=== PATIENT | female | born 1960 | race Hispanic/Latino ===

== ENCOUNTER 2020-03-06 05:19 | Observation (INO) | payer BC ==
[2020-03-05 12:20] VITALS: BP 128/85
[2020-03-05 12:45] LABS: BASOPHILS % (AUTO) 0.5 % (0.0-5.0); EOSINOPHILS % (AUTO) 1.3 % (0.0-8.0); HEMATOCRIT 47.7 % (36-48); LYMPHOCYTES % (AUTO) 28.3 % (21.0-51.0); MEAN CORPUSCULAR HEMOGLOBIN 29.9 pg (27.0-33.0); MEAN CORPUSCULAR HGB CONC 32.9 g/dL (32.0-36.0); MEAN CORPUSCULAR VOLUME 90.9 fL (79-99); MONOCYTES % (AUTO) 6.2 % (3.0-13.0); NEUTROPHILS % (AUTO) 63.4 % (40.0-77.0); PLATELET COUNT (AUTO) 226 K/uL (130-400); RED BLOOD CELL COUNT(AUTO) 5.25 MIL/uL (4.00-5.50); WHITE BLOOD COUNT (AUTO) 7.7 K/uL (4.8-10.8)
[~2020-03-06] VITALS: Ht 157.5 cm; Wt 70.6 kg
[2020-03-06] VITALS (25 sets, daily range): BP systolic 106–136; BP diastolic 43–86
[~2020-03-06 05:19] MED LIST: CALCIUM PO; KRIL1CAP29 PO; L.AC1CAP6 PO; MAG PO; SIMV10TA97 PO; ZINC PO; thyroid PO
[2020-03-06] MEDS ORDERED: LACTATED RINGERS 1000ML 1,000 ML IV SCH (08:00)
[2020-03-06] MEDS: CEFAZOLIN SODIUM 1 GM VIAL IVP ONE ×2 (08:13→10:40)
[2020-03-06] MEDS ORDERED: DEXAMETHASONE SOD PHOSPHATE 10MG/ML 1ML VIAL ONE (10:25)
[2020-03-06] MEDS ORDERED: MIDAZOLAM HCL 1 MG/ML 2ML VIAL ONE (10:25)
[2020-03-06] MEDS ORDERED: GLYCOPYRROLATE 1 MG/5 ML SYRINGE ONE (10:25)
[2020-03-06] MEDS ORDERED: LIDOCAINE PF 2% 5ML ABBOJECT ONE (10:25)
[2020-03-06] MEDS ORDERED: NEOSTIGMINE 5MG/5ML SYR IV ONE (10:26)
[2020-03-06] MEDS ORDERED: FENTANYL CITRATE PF 50 MCG/1 ML 2ML VIAL ONE ×2 (10:26→11:02)
[2020-03-06] MEDS ORDERED: PROPOFOL 10 MG/ML 20ML VIAL IV ONE (10:26)
[2020-03-06] MEDS ORDERED: ROCURONIUM 10MG/1ML SYR 10 MG/ML ML ONE (10:26)
[2020-03-06] MEDS ORDERED: ONDANSETRON HCL 4 MG/2 ML VIAL ONE ×2 (10:26→10:45)
[2020-03-06] MEDS ORDERED: ACETAMINOPHEN-CODEINE 300/30MG TAB ONE (12:48)
[2020-03-06] MEDS ORDERED: PROMETHAZINE HCL 25 MG/ML 1ML AMPULE IM PRN ×2 (15:00)
[2020-03-06] MEDS ORDERED: BISACODYL 10 MG SUPP.RECT RC PRN (15:00)
[2020-03-06] MEDS ORDERED: ONDANSETRON HCL 4 MG/2 ML VIAL IVP PRN (15:00)
[2020-03-06] MEDS ORDERED: ACETAMINOPHEN-CODEINE 300/30MG TAB PO PRN (15:00)
[2020-03-06] MEDS ORDERED: MEPERIDINE-PF 100 MG/ML SYG IM PRN (15:00)
[2020-03-06] MEDS: SIMETHICONE 80 MG TAB.CHEW PO PRN (19:51)
[2020-03-06] MEDS: IBUPROFEN 600 MG TABLET PO PRN (19:52)
[2020-03-06] MEDS: DOCUSATE SODIUM 100 MG CAP PO PRN (19:52)
[2020-03-06] MEDS: DEXTROSE 5 %-0.45 % NACL 1,000 ML IV PRN (21:57)
[2020-03-07 03:45] VITALS: BP 110/58
[2020-03-07] MEDS: IBUPROFEN 600 MG TABLET PO PRN ×2 (04:03→10:22)
--- NOTE | 2020-03-07 04:10 | NUR ---
S[facility], LEOLA CARE INSTRUCTED ON USE OF LEOLA BOTTLE AND SITZ BATH Addendum: 03/07/20 at 0439 by RENE CERON LVN Amended: Links added.
[2020-03-07] MEDS: DEXTROSE 5 %-0.45 % NACL 1,000 ML IV PRN (06:03)
[2020-03-07 06:43] LABS: HEMATOCRIT 40.8 % (36-48); MEAN CORPUSCULAR HEMOGLOBIN 30.2 pg (27.0-33.0); MEAN CORPUSCULAR HGB CONC 33.1 g/dL (32.0-36.0); MEAN CORPUSCULAR VOLUME 91.3 fL (79-99); RED BLOOD CELL COUNT(AUTO) 4.47 MIL/uL (4.00-5.50); RED CELL DISTRIBUTION WIDTH 12.9 % (11.0-15.5); WHITE BLOOD COUNT (AUTO) 14.2 K/uL (4.8-10.8)
[2020-03-07 07:32] VITALS: BP 114/54
[2020-03-07] MEDS: SIMETHICONE 80 MG TAB.CHEW PO PRN (08:49)
[2020-03-07] MEDS: DOCUSATE SODIUM 100 MG CAP PO PRN (08:49)
--- NOTE | 2020-03-07 09:30 | NUR ---
explained on use and benefits of sitz bath. assisted to the bathroom with sitz Addendum: 03/07/20 at 0938 by ISABEL GALINDO RN Amended: Links added.
[2020-03-07] MEDS ORDERED: DOCU-116 PO (10:06)
[2020-03-07] MEDS ORDERED: ACET1TAB12 PO (10:06)
--- NOTE | 2020-03-07 10:35 | NUR ---
verbal and written discharge instructions given, informed of the follow up appointment, prescription given. all questions answered, informed to call the doctor for future concerns, pt voiced understanding to all things discussed. Addendum: 03/07/20 at 1041 by ISABEL GALINDO RN Amended: Links added.
--- NOTE | 2020-03-07 10:40 | NUR ---
pt is dismissed in stable condition, brought to private car via wheelchair by denise noriegapcp Addendum: 03/07/20 at 1054 by ISABEL GALINDO RN Amended: Links added.
== END 2020-03-07 10:40 | disposition home or self-care (01) ==
LOC: DAH 05:19 → WSH 05:20 → DAH 05:20
PROVIDERS: ADMIT Obstetrics & Gynecology; ATTEND Obstetrics & Gynecology
DX: N81.9 Female genital prolapse, unspecified (principal); N81.6 Rectocele; E78.5 Hyperlipidemia, unspecified; E03.9 Hypothyroidism, unspecified
CPT/HCPCS: 36415 ×2; 57250; 85025; 85027; 86850; 86900; 86901; A4215; A4221; A4222; A4223; A4351; A4510; A4600; A4663; A5120; A6260; G0378 ×19; J0690; J1100; J2001; J2250; J2405 ×2; J2704; J2710; J3010 ×2; J3490; J7030; J7120 ×2

== ENCOUNTER → 2023-09-26 | Outpatient (CLI) | payer BC ==
[~2023-09-26] MED LIST changes: +ACET1TAB12 PO; +DOCU-116 PO
== END | disposition home or self-care (01) ==
LOC: SHCH 10:41
PROVIDERS: ATTEND Internal Medicine
DX: R01.1 Cardiac murmur, unspecified (principal)
CPT/HCPCS: 93306

== ENCOUNTER → 2023-11-03 | Outpatient (CLI) | payer BC | END | disposition home or self-care (01) | LOC: RAH 15:29 | PROVIDERS: ATTEND Family Medicine Sports Medicine | DX: Z12.31 Encounter for screening mammogram for malignant neoplasm of breast (principal); R92.323 Mammographic fibroglandular density, bilateral breasts | CPT/HCPCS: 77067 ==

== ENCOUNTER → 2024-11-17 | Outpatient (CLI) | payer BC ==
--- NOTE | 2024-11-17 10:16 | HMCIMG ---
MAMMO SCREENING BILATERAL HISTORY: Screening mammogram. COMPARISON: 11/03/2023 TECHNIQUE: Bilateral screening mammogram with CAD was performed with craniocaudal and mediolateral oblique projections. FINDINGS: There are scattered areas of fibroglandular density. There is no evidence of a dominant mass, or suspicious microcalcification. There is no evidence of nipple retraction or skin thickening. IMPRESSION: 1. Stable mammogram. Patient was entered into a reminder system with a target due date for their next mammogram. BI-RADS: CATEGORY 2: BENIGN FINDINGS Recommend monthly self breast exam as well as annual clinical examination. A negative x-ray should not delay biopsy if a dominant or clinically suspicious mass is present, since 8-10% of cancers are not identified by mammography. Dense breasts particularly, may obscure an underlying neoplasm. Some of these may be detected clinically and therefore, clinical examination is an essential part of breast evaluation.
== END | disposition home or self-care (01) ==
LOC: RAH 09:37
PROVIDERS: ATTEND Obstetrics & Gynecology
DX: Z12.31 Encounter for screening mammogram for malignant neoplasm of breast (principal); R92.323 Mammographic fibroglandular density, bilateral breasts
CPT/HCPCS: 77067